=== PATIENT | female | born 1985 | race African-American/Black ===

== ENCOUNTER 2018-09-22 11:17 | Inpatient (IN) ==
[2018-09-22] MEDS ORDERED: INSULIN LISPRO 100 UNIT/ML SUBCUT STA (11:40)
[2018-09-22 11:58] LABS: Basophils % 0.2 % (0.0-0.8); Hemoglobin 13.8 GM/DL (12.0-16.0); Immature Granulocytes % 0.6 %; Immature Granulocytes Absolute 0.09 #; Lymphocytes # 1.9 10*3/uL (1.4-4.0); Lymphocytes % 11.6 % (21.3-54.2); Mean Corpuscular HGB Conc 32.9 GM/DL (32-36); Mean Corpuscular Hemoglobin 25 PG (27-34); Mean Corpuscular Volume 76.2 FL (87-102); Mean Platelet Volume 10.5 FL (9.6-12.0); Monocytes # 0.8 10*3/uL (0.11-0.8); Monocytes % 4.8 % (1.7-12.7); Neutrophils # 13.6 10*3/uL (1.4-7.4); Neutrophils % 82.8 % (38.7-73.9); Platelet Count 408 T/CUMM (130-400); Red Blood Count 5.51 MC/CUMM (3.8-5.5); Red Cell Distribution Width 13.7 % (9.3-17.3); White Blood Count 16.4 T/CUMM (4-12)
[2018-09-22 12:11] LABS: Calcium 9.7 MG/DL (8.5-10.1); Osmolality,Calculated 290.5 MOS/KG (273-304); Potassium 3.6 MMOL/L (3.5-5.1)
[2018-09-22 12:25] LABS: Apearance,Urine CLEAR (Clear); Bilirubin,Urine Negative (Negative); Blood, Urine Small mg/dL (Negative); Glucose,Urine (UA) >=500 mg/dL (Negative); Ketones,Urine 20 mg/dL (Negative); Nitrite,Urine Negative (Negative); Protein,Urine 30 MG/DL; RBC,Urine 1 /HPF (0-4); Squamous Epithelial Cell,Urine Occasional /HPF (0-10); Urine Color Straw (Yellow); Urine Specific Gravity 1.024 (1.001-1.035); Urine Urobilinogen < 2.0 EU/DL (0.2-1.0); WBC,Urine 1 /HPF (0-6)
[2018-09-22] MEDS ORDERED: SODIUM CHLORIDE 0.9% 1,000 ML IV STA (13:06)
[2018-09-22 13:41] LABS: ABG Base Excess 4.9 MMOL/L (-2.5-2.5); ABG HCO3 28.8 MMOL/L (20-26); ABG Oxygen Saturation 96.3 % (95-100); ABG PO2 82.3 MM HG (80-95); ABG TCO2 25.4 MMOL/L (23-27)
[2018-09-22] MEDS ORDERED: SODIUM CHLORIDE 0.9% 2,000 ML IV ONE (14:56)
[2018-09-22] MEDS ORDERED: GLUCAGON 1 MG VIAL IM PRN (14:59)
[2018-09-22] MEDS ORDERED: DEXTROSE 50% 25 GM/50 ML VIAL IV PRN (14:59)
[2018-09-22] MEDS ORDERED: ONDANSETRON 4 MG/2 ML VIAL IV PRN (15:01)
[2018-09-22] MEDS: cefTRIAXone 1,000 MG in SYRINGE 1 EACH IV SCH (16:10)
[2018-09-22] MEDS: INSULIN REGULAR 100 UNIT/ML SUBCUT SCH (17:53)
[2018-09-22] MEDS: PANTOPRAZOLE 40 MG VIAL IV SCH (17:53)
[2018-09-22] MEDS: SODIUM CHLORIDE 0.9% 1,000 ML IV SCH ×2 (17:53→21:52)
[2018-09-22] MEDS: ENOXAPARIN 40 MG/0.4 ML SYRINGE SUBCUT SCH (20:51)
[2018-09-22] MEDS: LISINOPRIL 10 MG TABLET PO SCH (20:52)
[2018-09-23] MEDS: INSULIN REGULAR 100 UNIT/ML SUBCUT SCH ×4 (00:27→17:24)
[2018-09-23] MEDS: SODIUM CHLORIDE 0.9% 1,000 ML IV SCH ×3 (03:31→22:37)
[2018-09-23 06:09] LABS: Basophils % 0.2 % (0.0-0.8); Eosinophils % 0.1 % (0.00-10.9); Hematocrit 36.7 VOL% (35.7-47.0); Hemoglobin 11.6 GM/DL (12.0-16.0); Immature Granulocytes % 0.5 %; Immature Granulocytes Absolute 0.06 #; Lymphocytes # 2.5 10*3/uL (1.4-4.0); Lymphocytes % 20.5 % (21.3-54.2); Mean Corpuscular HGB Conc 31.6 GM/DL (32-36); Mean Corpuscular Hemoglobin 25 PG (27-34); Mean Corpuscular Volume 78.1 FL (87-102); Mean Platelet Volume 10.4 FL (9.6-12.0); Monocytes # 0.9 10*3/uL (0.11-0.8); Monocytes % 7.5 % (1.7-12.7); Neutrophils # 8.8 10*3/uL (1.4-7.4); Neutrophils % 71.2 % (38.7-73.9); Platelet Count 343 T/CUMM (130-400); Red Cell Distribution Width 13.6 % (9.3-17.3); White Blood Count 12.3 T/CUMM (4-12)
[2018-09-23 06:39] LABS: Calcium 7.8 MG/DL (8.5-10.1); Osmolality,Calculated 279.8 MOS/KG (273-304); Potassium 3.9 MMOL/L (3.5-5.1)
[2018-09-23 06:43] LABS: Risk Ratio 4.6; VLDL CHOLESTEROL 35.2 MG/DL
[2018-09-23] MEDS: PANTOPRAZOLE 40 MG VIAL IV SCH (08:15)
[2018-09-23] MEDS: LISINOPRIL 10 MG TABLET PO SCH ×2 (08:16→21:08)
[2018-09-23] MEDS: INSULIN ASPART PROTAMINE/ASPART 70/30 100 UNIT/ML SUBCUT SCH (11:34)
[2018-09-23] MEDS: cefTRIAXone 1,000 MG in SYRINGE 1 EACH IV SCH (15:09)
[2018-09-23] MEDS ORDERED: ALUM/MAG/SIMETH/LIDO VISC 1:1 30 ML BOTTLE PO ONE (16:00)
[2018-09-23 16:03] LABS: Troponin I < 0.015 NG/ML (0.00-0.045)
[2018-09-23] MEDS ORDERED: ASPIRIN 325 MG TABLET PO ONE (16:14)
[2018-09-23] MEDS ORDERED: INSULIN ASPART PROTAMINE/ASPART 70/30 100 UNIT/ML SUBCUT SCH (16:30)
[2018-09-23] MEDS: metFORMIN 500 MG TABLET PO SCH (16:52)
[2018-09-23] MEDS ORDERED: INSULIN GLARGINE 100 UNIT/ML SUBCUT SCH (21:00)
[2018-09-23] MEDS: ENOXAPARIN 40 MG/0.4 ML SYRINGE SUBCUT SCH (21:04)
[2018-09-23 22:19] LABS: Troponin I < 0.015 NG/ML (0.00-0.045)
[2018-09-24] MEDS: INSULIN REGULAR 100 UNIT/ML SUBCUT SCH ×3 (00:33→14:59)
[2018-09-24 05:54] LABS: Basophils % 0.4 % (0.0-0.8); Eosinophils % 0.3 % (0.00-10.9); Hematocrit 33.9 VOL% (35.7-47.0); Hemoglobin 10.9 GM/DL (12.0-16.0); Immature Granulocytes % 0.1 %; Immature Granulocytes Absolute 0.01 #; Lymphocytes % 43.2 % (21.3-54.2); Mean Corpuscular HGB Conc 32.2 GM/DL (32-36); Mean Corpuscular Hemoglobin 25 PG (27-34); Mean Corpuscular Volume 77.6 FL (87-102); Mean Platelet Volume 10.1 FL (9.6-12.0); Monocytes # 0.6 10*3/uL (0.11-0.8); Monocytes % 8.6 % (1.7-12.7); Neutrophils # 3.3 10*3/uL (1.4-7.4); Neutrophils % 47.4 % (38.7-73.9); Platelet Count 323 T/CUMM (130-400); Red Blood Count 4.37 MC/CUMM (3.8-5.5); Red Cell Distribution Width 13.5 % (9.3-17.3); White Blood Count 6.9 T/CUMM (4-12)
[2018-09-24 06:09] LABS: Calcium 7.5 MG/DL (8.5-10.1); Osmolality,Calculated 276.5 MOS/KG (273-304); Potassium 3.2 MMOL/L (3.5-5.1)
[2018-09-24 06:13] LABS: Troponin I < 0.015 NG/ML (0.00-0.045)
[2018-09-24] MEDS ORDERED: POTASSIUM CHLORIDE 20 MEQ TABLET PO PRN (09:21)
[2018-09-24] MEDS ORDERED: POTASSIUM CHLORIDE 20 MEQ/15 ML UDCUP PO SCH (09:30)
[2018-09-24 10:07] LABS: Troponin I < 0.015 NG/ML (0.00-0.045)
[2018-09-24] MEDS: PANTOPRAZOLE 40 MG VIAL IV SCH (10:47)
[2018-09-24] MEDS: metFORMIN 500 MG TABLET PO SCH (10:48)
[2018-09-24] MEDS: LISINOPRIL 10 MG TABLET PO SCH (10:48)
[2018-09-24] MEDS: INSULIN ASPART PROTAMINE/ASPART 70/30 100 UNIT/ML SUBCUT SCH (10:48)
[2018-09-24] MEDS ORDERED: MORPHINE 4 MG/1 ML VIAL IV ONE (11:15)
[2018-09-24 14:44] VITALS: BP 144/95
== END 2018-09-24 14:30 | disposition home or self-care (01) | DRG 638 ==
LOC: N.ED 11:17 → N.5E 15:01
PROVIDERS: ADMIT Internal Medicine; ATTEND Internal Medicine

== ENCOUNTER 2019-09-21 09:39 | Observation (INO) ==
[2019-09-21 11:08] LABS: Basophils # 0.1 10*3/uL (0.0-0.2); Eosinophils # 0.1 10*3/uL (0.0-0.87); Hematocrit 35.5 VOL% (35.7-47.0); Hemoglobin 11.4 GM/DL (12.0-16.0); Immature Granulocytes % 0.3 %; Immature Granulocytes Absolute 0.02 #; Lymphocytes # 2.3 10*3/uL (1.4-4.0); Lymphocytes % 32.8 % (21.3-54.2); Mean Corpuscular HGB Conc 32.1 GM/DL (32-36); Mean Corpuscular Volume 78.2 FL (87-102); Mean Platelet Volume 9.9 FL (9.6-12.0); Monocytes % 8.4 % (1.7-12.7); Neutrophils % 56.5 % (38.7-73.9); Platelet Count 378 T/CUMM (130-400); Red Blood Count 4.54 MC/CUMM (3.8-5.5); Red Cell Distribution Width 13.8 % (9.3-17.3); White Blood Count 7.1 T/CUMM (4-12)
[2019-09-21 11:15] LABS: Apearance,Urine Slightly Hazy (Clear); Bacteria,Urine Many /HPF (Few); Bilirubin,Urine Negative (Negative); Blood, Urine Moderate mg/dL (Negative); Glucose,Urine (UA) >=500 mg/dL (Negative); Ketones,Urine Negative (Negative); Nitrite,Urine Negative (Negative); Protein,Urine 100 MG/DL; RBC,Urine 12 /HPF (0-4); Squamous Epithelial Cell,Urine Occasional /HPF (0-10); Urine Color Yellow (Yellow); Urine Specific Gravity 1.017 (1.001-1.035); Urine Urobilinogen < 2.0 EU/DL (0.2-1.0); WBC,Urine 13 /HPF (0-6)
[2019-09-21 11:36] LABS: Albumin 2.9 G/DL (3.4-5.0); Bilirubin,Total 0.4 MG/DL (0.2-1.0); Osmolality,Calculated 273.5 MOS/KG (273-304); Total Protein 8.1 G/DL (6.4-8.3)
[2019-09-21] MEDS ORDERED: PIPERACILLIN/TAZOBACTAM 3,375 MG in SODIUM CHLORIDE 0.9% 100 ML IV STA (11:45)
[2019-09-21] MEDS ORDERED: INSULIN LISPRO 100 UNIT/ML SUBCUT STA (12:01)
[2019-09-21] MEDS ORDERED: INSULIN LISPRO 100 UNIT/ML ONE (12:12)
[2019-09-21] MEDS ORDERED: VANCOMYCIN 1,000 MG VIAL ONE (13:56)
[2019-09-21] MEDS: VANCOMYCIN INJ 1,000 MG in SODIUM CHLORIDE 0.9% 250 ML IV SCH (14:04)
[2019-09-21] MEDS ORDERED: ONDANSETRON 4 MG/2 ML VIAL IV PRN (15:21)
[2019-09-21] MEDS ORDERED: GLUCAGON 1 MG VIAL IM PRN (15:21)
[2019-09-21] MEDS ORDERED: DEXTROSE 50% 25 GM/50 ML VIAL IV PRN (15:21)
[2019-09-21] MEDS ORDERED: MORPHINE 4 MG/1 ML VIAL IV PRN (15:21)
[2019-09-21] MEDS ORDERED: ENOXAPARIN 40 MG/0.4 ML SYRINGE SUBCUT SCH (15:30)
[2019-09-21] MEDS ORDERED: VANCOMYCIN INJ 1,000 MG in SODIUM CHLORIDE 0.9% 250 ML IV SCH (15:30)
[2019-09-21] MEDS ORDERED: INSULIN ASPART PROTAMINE/ASPART 70/30 100 UNIT/ML SUBCUT SCH (16:30)
[2019-09-21] MEDS: INSULIN REGULAR 100 UNIT/ML SUBCUT SCH ×2 (19:41→22:43)
[2019-09-21] MEDS: metFORMIN 500 MG TABLET PO SCH (19:42)
[2019-09-21] MEDS: PIPERACILLIN/TAZOBACTAM 3,375 MG in SODIUM CHLORIDE 0.9% 100 ML IV SCH (21:53)
[2019-09-21] MEDS: lisinopriL 10 MG TABLET PO SCH (21:57)
[2019-09-22] MEDS: VANCOMYCIN INJ 1,000 MG in SODIUM CHLORIDE 0.9% 250 ML IV SCH (03:03)
[2019-09-22 03:50] LABS: Basophils # 0.1 10*3/uL (0.0-0.2); Eosinophils # 0.1 10*3/uL (0.0-0.87); Eosinophils % 1.4 % (0.00-10.9); Hemoglobin 10.7 GM/DL (12.0-16.0); Immature Granulocytes % 0.2 %; Immature Granulocytes Absolute 0.02 #; Lymphocytes # 3.1 10*3/uL (1.4-4.0); Lymphocytes % 38.1 % (21.3-54.2); Mean Corpuscular HGB Conc 31.5 GM/DL (32-36); Mean Corpuscular Volume 78.9 FL (87-102); Mean Platelet Volume 10.3 FL (9.6-12.0); Monocytes % 6.5 % (1.7-12.7); Neutrophils % 52.8 % (38.7-73.9); Platelet Count 373 T/CUMM (130-400); Red Blood Count 4.31 MC/CUMM (3.8-5.5); Red Cell Distribution Width 13.8 % (9.3-17.3); White Blood Count 8.1 T/CUMM (4-12)
[2019-09-22 04:09] LABS: Alanine Aminotransferase 13 U/L (13-56); Albumin 2.6 G/DL (3.4-5.0); Alkaline Phosphatase 91 U/L (45-117); Aspartate Amino Transferase 11 U/L (0-37); Bilirubin,Total < 0.39 MG/DL (0.2-1.0); Blood Urea Nitrogen 11 MG/DL (7-18); Calcium 8.5 MG/DL (8.5-10.1); Estimated Glom Filtration Rate 123 ML/MIN; Glucose 85 MG/DL (74-106); Total Protein 7.7 G/DL (6.4-8.3)
[2019-09-22] MEDS: PIPERACILLIN/TAZOBACTAM 3,375 MG in SODIUM CHLORIDE 0.9% 100 ML IV SCH (06:02)
[2019-09-22] MEDS ORDERED: INSULIN ASPART PROTAMINE/ASPART 70/30 100 UNIT/ML SUBCUT SCH (07:30)
[2019-09-22] MEDS ORDERED: LIDOCAINE 1% 50 ML VIAL ONE (08:02)
[2019-09-22] MEDS: INSULIN REGULAR 100 UNIT/ML SUBCUT SCH ×2 (08:14→13:31)
[2019-09-22] MEDS: lisinopriL 10 MG TABLET PO SCH (08:31)
[2019-09-22] MEDS: metFORMIN 500 MG TABLET PO SCH (08:31)
[2019-09-22 10:22] VITALS: BP 112/79
== END 2019-09-22 13:47 | disposition home or self-care (01) ==
LOC: N.EDINP 09:39 → N.ED 09:39 → N.2W 15:50
PROVIDERS: ADMIT Family Medicine; ATTEND Family Medicine

== ENCOUNTER 2019-10-03 21:00 | Inpatient (IN) ==
[2019-10-03] MEDS ORDERED: PANTOPRAZOLE 40 MG VIAL IV STA (21:31)
[2019-10-03] MEDS ORDERED: ONDANSETRON 4 MG/2 ML VIAL IV STA (21:31)
[2019-10-03] MEDS ORDERED: SODIUM CHLORIDE 0.9% 1,000 ML IV STA ×2 (21:31→22:24)
[2019-10-03] MEDS ORDERED: METOCLOPRAMIDE 10 MG/2 ML VIAL IV STA (21:31)
[2019-10-03 21:54] LABS: Basophils % 0.2 % (0.0-0.8); Hemoglobin 13.3 GM/DL (12.0-16.0); Immature Granulocytes % 0.6 %; Immature Granulocytes Absolute 0.09 #; Lymphocytes # 1.9 10*3/uL (1.4-4.0); Mean Corpuscular HGB Conc 32.4 GM/DL (32-36); Mean Corpuscular Volume 77.2 FL (87-102); Mean Platelet Volume 9.8 FL (9.6-12.0); Monocytes % 6.2 % (1.7-12.7); Platelet Count 492 T/CUMM (130-400); Red Blood Count 5.31 MC/CUMM (3.8-5.5); White Blood Count 14.8 T/CUMM (4-12)
[2019-10-03 22:20] LABS: Alanine Aminotransferase 16 U/L (13-56); Albumin 3.2 G/DL (3.4-5.0); Alkaline Phosphatase 88 U/L (45-117); Amylase 25 U/L (25-115); Aspartate Amino Transferase 12 U/L (0-37); Bilirubin,Total < 0.39 MG/DL (0.2-1.0); Blood Urea Nitrogen 26 MG/DL (7-18); Calcium 9.9 MG/DL (8.5-10.1); Estimated Glom Filtration Rate 78 ML/MIN; Glucose 434 MG/DL (74-106); Osmolality,Calculated 281.9 MOS/KG (273-304); Total Protein 9.5 G/DL (6.4-8.3)
[2019-10-03 22:23] LABS: Apearance,Urine CLOUDY (Clear); Bilirubin,Urine Negative (Negative); Blood, Urine Large mg/dL (Negative); Glucose,Urine (UA) >=500 mg/dL (Negative); Ketones,Urine 20 mg/dL (Negative); Nitrite,Urine Negative (Negative); Protein,Urine 100 MG/DL; RBC,Urine 48 /HPF (0-4); Squamous Epithelial Cell,Urine Moderate /HPF (0-10); Urine Color Yellow (Yellow); Urine Specific Gravity 1.023 (1.001-1.035); Urine Urobilinogen < 2.0 EU/DL (0.2-1.0); WBC,Urine 267 /HPF (0-6)
[2019-10-03] MEDS ORDERED: LEVOFLOXACIN INJ 750 MG in PREMIX 1 EACH IV STA (23:27)
[2019-10-03] MEDS ORDERED: INSULIN REGULAR 100 UNIT/ML IV ONE (23:28)
[2019-10-04] MEDS ORDERED: LABETALOL 20 MG/4 ML SYRINGE IV STA (00:12)
[2019-10-04] MEDS ORDERED: LABETALOL 20 MG/4 ML SYRINGE IV ONE (00:13)
[2019-10-04] MEDS ORDERED: ALUMINUM/MAGNES/SIMETH MAX STR 30 ML UDCUP PO PRN (00:27)
[2019-10-04] MEDS ORDERED: hydrALAZINE 20 MG/1 ML VIAL IV PRN (00:27)
[2019-10-04] MEDS ORDERED: GLUCAGON 1 MG VIAL IM PRN (00:27)
[2019-10-04] MEDS ORDERED: ACETAMINOPHEN 325 MG TABLET PO PRN (00:27)
[2019-10-04] MEDS ORDERED: NICOTINE 21 MG/24 HR PATCH TRANSDERM PRN (00:27)
[2019-10-04] MEDS ORDERED: ONDANSETRON 4 MG/2 ML VIAL IV PRN (00:27)
[2019-10-04] MEDS ORDERED: diphenhydrAMINE CAP 25 MG CAPSULE PO PRN (00:27)
[2019-10-04] MEDS ORDERED: DEXTROSE 10% 250 ML BAG IV PRN (00:33)
[2019-10-04 02:25] LABS: Calcium 8.4 MG/DL (8.5-10.1)
[2019-10-04] MEDS: SODIUM CHLORIDE 0.9% 1,000 ML IV SCH ×2 (02:48→09:17)
[2019-10-04] MEDS: INSULIN REGULAR 100 UNIT/ML SUBCUT SCH ×4 (04:31→12:53)
[2019-10-04] MEDS ORDERED: POTASSIUM CHLORIDE 20 MEQ TABLET PO ONE (07:45)
[2019-10-04] MEDS ORDERED: INSULIN ASPART PROTAMINE/ASPART 70/30 100 UNIT/ML SUBCUT SCH ×2 (08:00→16:30)
[2019-10-04] MEDS ORDERED: cefTRIAXone 1,000 MG in SYRINGE 1 EACH IV SCH (08:00)
[2019-10-04] MEDS ORDERED: lisinopriL 10 MG TABLET PO SCH (09:00)
[2019-10-04] MEDS ORDERED: FAMOTIDINE 20 MG TABLET PO SCH (09:00)
[2019-10-04 09:04] LABS: Calcium 8.7 MG/DL (8.5-10.1)
[2019-10-04] MEDS ORDERED: PROCHLORPERAZINE 5 MG TABLET PO SCH (09:30)
[2019-10-04 11:12] VITALS: BP 153/105
[2019-10-04] MEDS ORDERED: LEVOFLOXACIN INJ 750 MG in PREMIX 1 EACH IV SCH (23:00)
== END 2019-10-04 16:03 | disposition home or self-care (01) | DRG 638 ==
LOC: N.ED 21:00 → SUATTDRO 10-04 00:27 → N.EDINP 10-04 00:27 → N.5E 10-04 01:22
PROVIDERS: ADMIT Internal Medicine; ATTEND Internal Medicine

== ENCOUNTER 2020-01-16 15:08 | Inpatient (IN) ==
[2020-01-16] MEDS ORDERED: ONDANSETRON 4 MG/2 ML VIAL IV STA (17:26)
[2020-01-16] MEDS ORDERED: SODIUM CHLORIDE 0.9% 1,000 ML IV STA ×2 (17:28→18:59)
[2020-01-16] MEDS ORDERED: DICYCLOMINE 20 MG/2 ML AMP IM ONE (17:28)
[2020-01-16 17:42] LABS: Basophils % 0.1 % (0.0-0.8); Hematocrit 41.7 VOL% (35.7-47.0); Hemoglobin 13.6 GM/DL (12.0-16.0); Immature Granulocytes % 0.4 %; Immature Granulocytes Absolute 0.06 #; Lymphocytes # 1.8 10*3/uL (1.4-4.0); Lymphocytes % 11.6 % (21.3-54.2); Mean Corpuscular HGB Conc 32.6 GM/DL (32-36); Mean Corpuscular Volume 73.7 FL (87-102); Mean Platelet Volume 9.7 FL (9.6-12.0); Monocytes % 6.8 % (1.7-12.7); Neutrophils % 81.1 % (38.7-73.9); Platelet Count 396 T/CUMM (130-400); Red Blood Count 5.66 MC/CUMM (3.8-5.5); Red Cell Distribution Width 15.7 % (9.3-17.3); White Blood Count 15.8 T/CUMM (4-12)
[2020-01-16 17:50] LABS: VBG Base Excess 8.3 MEQ/L (0-4); VBG HCO3 31.8 MEQ/L (24-28); VBG Oxygen Saturation 86.4 %; VBG PCO2 44.7 MMHG (41-51); VBG PH 7.477
[2020-01-16 18:05] LABS: Albumin 3.6 G/DL (3.4-5.0); Bilirubin,Total 0.4 MG/DL (0.2-1.0); Calcium 9.4 MG/DL (8.5-10.1); Osmolality,Calculated 275.8 MOS/KG (273-304); Total Protein 8.8 G/DL (6.4-8.3)
[2020-01-16] MEDS ORDERED: INSULIN REGULAR 100 UNIT/ML SUBCUT STA (18:18)
[2020-01-16 18:45] LABS: Apearance,Urine CLOUDY (Clear); Bilirubin,Urine Negative (Negative); Blood, Urine Moderate mg/dL (Negative); Glucose,Urine (UA) >=500 mg/dL (Negative); Ketones,Urine 5 mg/dL (Negative); Nitrite,Urine Negative (Negative); Protein,Urine >=500 MG/DL; RBC,Urine 38 /HPF (0-4); Squamous Epithelial Cell,Urine Occasional /HPF (0-10); Urine Color Yellow (Yellow); Urine Specific Gravity 1.021 (1.001-1.035); Urine Urobilinogen < 2.0 EU/DL (0.2-1.0); WBC,Urine 164 /HPF (0-6)
[2020-01-16] MEDS ORDERED: cefTRIAXone 1,000 MG in SODIUM CHLORIDE 0.9% 100 ML IV STA (19:00)
[2020-01-16] MEDS ORDERED: PROMETHAZINE INJ 12.5 MG in SODIUM CHLORIDE 0.9% 50 ML IV STA (19:29)
[2020-01-16] MEDS ORDERED: ACETAMINOPHEN 325 MG TABLET PO PRN (19:50)
[2020-01-16] MEDS ORDERED: ZALEPLON 5 MG CAPSULE PO PRN (19:50)
[2020-01-16] MEDS ORDERED: DEXTROSE 10% 250 ML BAG IV PRN (19:50)
[2020-01-16] MEDS ORDERED: GLUCAGON 1 MG VIAL IM PRN (19:50)
[2020-01-16] MEDS: ENOXAPARIN 40 MG/0.4 ML SYRINGE SUBCUT SCH (21:37)
[2020-01-16] MEDS: PROMETHAZINE 25 MG/1 ML VIAL IM PRN (23:05)
[2020-01-16] MEDS: SODIUM CHLORIDE 0.9% 1,000 ML IV SCH (23:09)
[2020-01-16] MEDS: INSULIN REGULAR 100 UNIT/ML SUBCUT SCH (23:22)
[2020-01-17] MEDS: hydrALAZINE 20 MG/1 ML VIAL IV PRN (05:48)
[2020-01-17] MEDS: SODIUM CHLORIDE 0.9% 1,000 ML IV SCH ×2 (05:50→16:55)
[2020-01-17 07:49] LABS: Basophils % 0.2 % (0.0-0.8); Hematocrit 39.3 VOL% (35.7-47.0); Hemoglobin 12.9 GM/DL (12.0-16.0); Immature Granulocytes % 0.3 %; Immature Granulocytes Absolute 0.04 #; Lymphocytes # 1.5 10*3/uL (1.4-4.0); Lymphocytes % 11.6 % (21.3-54.2); Mean Corpuscular HGB Conc 32.8 GM/DL (32-36); Mean Platelet Volume 9.5 FL (9.6-12.0); Monocytes % 5.9 % (1.7-12.7); Platelet Count 355 T/CUMM (130-400); Red Blood Count 5.31 MC/CUMM (3.8-5.5); Red Cell Distribution Width 15.7 % (9.3-17.3); White Blood Count 12.8 T/CUMM (4-12)
[2020-01-17] MEDS: INSULIN REGULAR 100 UNIT/ML SUBCUT SCH ×4 (08:01→20:47)
[2020-01-17 08:09] LABS: Bilirubin,Total 0.4 MG/DL (0.2-1.0); Calcium 8.2 MG/DL (8.5-10.1); Osmolality,Calculated 274.4 MOS/KG (273-304); Total Protein 7.9 G/DL (6.4-8.3)
[2020-01-17] MEDS: ONDANSETRON 4 MG/2 ML VIAL IV PRN ×2 (11:41→20:50)
[2020-01-17] MEDS: lisinopriL 10 MG TABLET PO SCH (16:56)
[2020-01-17] MEDS: INSULIN NPH/REGULAR 70/30 100 UNIT/ML SUBCUT SCH (16:57)
[2020-01-17] MEDS: ENOXAPARIN 40 MG/0.4 ML SYRINGE SUBCUT SCH (20:48)
[2020-01-17] MEDS: cefTRIAXone 1,000 MG in SYRINGE 1 EACH IV SCH (20:48)
[2020-01-18] MEDS: SODIUM CHLORIDE 0.9% 1,000 ML IV SCH ×4 (02:31→21:30)
[2020-01-18 05:09] LABS: Basophils % 0.2 % (0.0-0.8); Hematocrit 36.8 VOL% (35.7-47.0); Hemoglobin 11.7 GM/DL (12.0-16.0); Immature Granulocytes % 0.2 %; Immature Granulocytes Absolute 0.01 #; Lymphocytes # 1.2 10*3/uL (1.4-4.0); Lymphocytes % 25.7 % (21.3-54.2); Mean Corpuscular HGB Conc 31.8 GM/DL (32-36); Mean Corpuscular Volume 74.3 FL (87-102); Mean Platelet Volume 9.2 FL (9.6-12.0); Monocytes % 11.8 % (1.7-12.7); Neutrophils % 62.1 % (38.7-73.9); Platelet Count 272 T/CUMM (130-400); Red Blood Count 4.95 MC/CUMM (3.8-5.5); Red Cell Distribution Width 15.6 % (9.3-17.3); White Blood Count 4.6 T/CUMM (4-12)
[2020-01-18 05:28] LABS: Calcium 7.5 MG/DL (8.5-10.1); Osmolality,Calculated 266.5 MOS/KG (273-304)
[2020-01-18] MEDS ORDERED: POTASSIUM CHLORIDE RIDER 10 MEQ in PREMIX 1 EACH IV PRN (08:10)
[2020-01-18] MEDS: ONDANSETRON 4 MG/2 ML VIAL IV PRN (09:05)
[2020-01-18] MEDS: INSULIN NPH/REGULAR 70/30 100 UNIT/ML SUBCUT SCH ×2 (09:07→16:42)
[2020-01-18] MEDS: INSULIN REGULAR 100 UNIT/ML SUBCUT SCH ×4 (09:08→21:31)
[2020-01-18] MEDS: POTASSIUM CHLORIDE 20 MEQ TABLET PO PRN ×4 (09:26→16:42)
[2020-01-18] MEDS: lisinopriL 10 MG TABLET PO SCH (09:28)
[2020-01-18] MEDS: CITALOPRAM 20 MG TABLET PO SCH (09:28)
[2020-01-18] MEDS: POLYETHYLENE GLYCOL POWDER 17 GM PACK PO SCH (10:50)
[2020-01-18] MEDS: hydrALAZINE 20 MG/1 ML VIAL IV PRN (13:06)
[2020-01-18] MEDS: PROMETHAZINE 25 MG/1 ML VIAL IM PRN (16:42)
[2020-01-18] MEDS: cefTRIAXone 1,000 MG in SYRINGE 1 EACH IV SCH (21:30)
[2020-01-18] MEDS: ENOXAPARIN 40 MG/0.4 ML SYRINGE SUBCUT SCH (21:30)
[2020-01-19] MEDS: POTASSIUM CHLORIDE 20 MEQ TABLET PO PRN ×6 (00:31→18:13)
[2020-01-19 05:30] LABS: Basophils % 0.3 % (0.0-0.8); Hematocrit 36.7 VOL% (35.7-47.0); Hemoglobin 11.6 GM/DL (12.0-16.0); Immature Granulocytes % 0.3 %; Immature Granulocytes Absolute 0.01 #; Lymphocytes # 1.7 10*3/uL (1.4-4.0); Lymphocytes % 46.8 % (21.3-54.2); Mean Corpuscular HGB Conc 31.6 GM/DL (32-36); Mean Corpuscular Volume 74.4 FL (87-102); Mean Platelet Volume 9.6 FL (9.6-12.0); Monocytes % 11.3 % (1.7-12.7); Neutrophils % 41.3 % (38.7-73.9); Platelet Count 219 T/CUMM (130-400); Red Blood Count 4.93 MC/CUMM (3.8-5.5); Red Cell Distribution Width 15.3 % (9.3-17.3); White Blood Count 3.6 T/CUMM (4-12)
[2020-01-19 05:42] LABS: Calcium 7.6 MG/DL (8.5-10.1); Osmolality,Calculated 260.5 MOS/KG (273-304)
[2020-01-19] MEDS: CITALOPRAM 20 MG TABLET PO SCH (09:28)
[2020-01-19] MEDS: POLYETHYLENE GLYCOL POWDER 17 GM PACK PO SCH (09:28)
[2020-01-19] MEDS: lisinopriL 10 MG TABLET PO SCH (09:29)
[2020-01-19] MEDS: INSULIN REGULAR 100 UNIT/ML SUBCUT SCH ×4 (09:29→21:33)
[2020-01-19] MEDS: SODIUM CHLORIDE 0.9% 1,000 ML IV SCH ×2 (09:29→21:25)
[2020-01-19] MEDS: INSULIN NPH/REGULAR 70/30 100 UNIT/ML SUBCUT SCH ×2 (09:30→16:59)
[2020-01-19] MEDS ORDERED: SODIUM PHOSPHATE ENEMA 133 ML BOTTLE RECTAL PRN (10:44)
[2020-01-19] MEDS ORDERED: MAGNESIUM CITRATE 300 ML BOTTLE PO ONE (10:44)
[2020-01-19] MEDS: hydrALAZINE 20 MG/1 ML VIAL IV PRN ×2 (12:16→21:20)
[2020-01-19] MEDS: ONDANSETRON 4 MG/2 ML VIAL IV PRN ×2 (12:22)
[2020-01-19] MEDS: cefTRIAXone 1,000 MG in SYRINGE 1 EACH IV SCH (21:20)
[2020-01-19] MEDS: ENOXAPARIN 40 MG/0.4 ML SYRINGE SUBCUT SCH (21:21)
[2020-01-20 02:46] LABS: Basophils % 0.2 % (0.0-0.8); Hematocrit 33.9 VOL% (35.7-47.0); Hemoglobin 11.1 GM/DL (12.0-16.0); Immature Granulocytes % 0.2 %; Immature Granulocytes Absolute 0.01 #; Lymphocytes # 1.9 10*3/uL (1.4-4.0); Lymphocytes % 45.2 % (21.3-54.2); Mean Corpuscular HGB Conc 32.7 GM/DL (32-36); Mean Corpuscular Volume 73.1 FL (87-102); Mean Platelet Volume 9.7 FL (9.6-12.0); Monocytes % 13.2 % (1.7-12.7); Neutrophils % 41.2 % (38.7-73.9); Platelet Count 191 T/CUMM (130-400); Red Blood Count 4.64 MC/CUMM (3.8-5.5); Red Cell Distribution Width 15.6 % (9.3-17.3); White Blood Count 4.2 T/CUMM (4-12)
[2020-01-20 03:13] LABS: Calcium 7.9 MG/DL (8.5-10.1); Osmolality,Calculated 263.8 MOS/KG (273-304)
[2020-01-20] MEDS: SODIUM CHLORIDE 0.9% 1,000 ML IV SCH ×2 (05:41→07:59)
[2020-01-20] MEDS: lisinopriL 10 MG TABLET PO SCH (09:41)
[2020-01-20] MEDS: INSULIN NPH/REGULAR 70/30 100 UNIT/ML SUBCUT SCH (09:41)
[2020-01-20] MEDS: CITALOPRAM 20 MG TABLET PO SCH (09:42)
[2020-01-20] MEDS: POLYETHYLENE GLYCOL POWDER 17 GM PACK PO SCH (09:42)
[2020-01-20] MEDS: INSULIN REGULAR 100 UNIT/ML SUBCUT SCH ×2 (09:42→11:48)
[2020-01-20 11:32] VITALS: BP 108/68
== END 2020-01-20 12:18 | disposition home or self-care (01) | DRG 392 ==
LOC: N.ED 15:08 → N.EDINP 15:08 → N.TELES 22:04 → N.4E 01-19 18:33
PROVIDERS: ADMIT Internal Medicine; ATTEND Internal Medicine

== ENCOUNTER 2020-07-29 14:47 | Inpatient (IN) ==
[2020-07-29 18:32] LABS: Basophils % 0.4 % (0.0-0.8); Hematocrit 38.7 VOL% (35.7-47.0); Immature Granulocytes % 0.2 %; Immature Granulocytes Absolute 0.01 #; Lymphocytes # 1.6 10*3/uL (1.4-4.0); Lymphocytes % 32.3 % (21.3-54.2); Mean Corpuscular HGB Conc 33.6 GM/DL (32-36); Mean Corpuscular Volume 74.7 FL (87-102); Mean Platelet Volume 10.5 FL (9.6-12.0); Monocytes % 4.5 % (1.7-12.7); Neutrophils % 62.6 % (38.7-73.9); Platelet Count 189 T/CUMM (130-400); Red Blood Count 5.18 MC/CUMM (3.8-5.5); Red Cell Distribution Width 13.6 % (9.3-17.3); White Blood Count 4.9 T/CUMM (4-12)
[2020-07-29 18:49] LABS: Albumin 2.7 G/DL (3.4-5.0); Bilirubin,Total 0.4 MG/DL (0.2-1.0); Calcium 8.4 MG/DL (8.5-10.1); Ferritin 155.7 ng/ml (8-252); Osmolality,Calculated 264.2 MOS/KG (273-304); Total Protein 8.4 G/DL (6.4-8.3)
[2020-07-29 19:13] LABS: Anisocytosis 1+; Band Neutrophils 1 % (0-10); Lymphocytes 34 % (20-55); Microcytosis 1+; Platelet Estimate Normal; Segmented Neutrophils 63 % (50-85); Total Cells Counted 100
[2020-07-29 19:14] LABS: Atypical Lymphocytes Few
[2020-07-29] MEDS ORDERED: ACETAMINOPHEN 500 MG TABLET PO STA (21:17)
[2020-07-29] MEDS ORDERED: ACETAMINOPHEN 500 MG TABLET ONE (21:18)
[2020-07-29 21:59] LABS: Bilirubin,Urine Negative (Negative); Blood, Urine Large mg/dL (Negative); Glucose,Urine (UA) >=500 mg/dL (Negative); Granular Casts,Urine 2 /LPF (0-1); Hyaline Casts,Urine 12 /LPF (0-3); Ketones,Urine 20 mg/dL (Negative); Nitrite,Urine Negative (Negative); Protein,Urine >=500 MG/DL; RBC,Urine 374 /HPF (0-4); Squamous Epithelial Cell,Urine Occasional /HPF (0-10); Urine Appearance Slightly Hazy (Clear); Urine Color Yellow (Yellow); Urine Specific Gravity 1.021 (1.001-1.035); Urine Urobilinogen < 2.0 EU/DL (0.2-1.0); WBC,Urine 10 /HPF (0-6)
[2020-07-29] MEDS ORDERED: ACETAMINOPHEN 325 MG TABLET PO PRN (23:15)
[2020-07-29] MEDS ORDERED: DOCUSATE SODIUM 100 MG CAPSULE PO PRN (23:15)
[2020-07-29] MEDS ORDERED: DEXTROSE 50% 25 GM/50 ML VIAL IV PRN (23:15)
[2020-07-29] MEDS ORDERED: GLUCAGON 1 MG VIAL IM PRN (23:15)
[2020-07-29] MEDS ORDERED: ONDANSETRON 4 MG/2 ML VIAL IV PRN (23:15)
[2020-07-29] MEDS ORDERED: DEXTROSE 50% 25 GM/50 ML SYRINGE IV PRN (23:31)
[2020-07-29] MEDS ORDERED: SODIUM CHLORIDE 0.9% 1,000 ML IV SCH (23:45)
[2020-07-30] MEDS: cefTRIAXone 1,000 MG in SYRINGE 1 EACH IV SCH (01:38)
[2020-07-30] MEDS: ENOXAPARIN 40 MG/0.4 ML SYRINGE SUBCUT SCH ×2 (02:02→22:12)
[2020-07-30] MEDS: FAMOTIDINE 20 MG TABLET PO SCH ×3 (02:03→22:13)
[2020-07-30] MEDS: ASCORBIC ACID 500 MG TABLET PO SCH ×3 (02:03→22:13)
[2020-07-30] MEDS: AZITHROMYCIN INJ 500 MG in SODIUM CHLORIDE 0.9% 250 ML IV SCH (02:03)
[2020-07-30 06:03] LABS: Basophils % 0.4 % (0.0-0.8); Hematocrit 33.2 VOL% (35.7-47.0); Hemoglobin 11.2 GM/DL (12.0-16.0); Immature Granulocytes % 0.5 %; Immature Granulocytes Absolute 0.03 #; Lymphocytes # 1.6 10*3/uL (1.4-4.0); Lymphocytes % 29.4 % (21.3-54.2); Mean Corpuscular HGB Conc 33.7 GM/DL (32-36); Mean Corpuscular Volume 74.9 FL (87-102); Mean Platelet Volume 10.2 FL (9.6-12.0); Monocytes % 4.8 % (1.7-12.7); Neutrophils % 64.9 % (38.7-73.9); Platelet Count 181 T/CUMM (130-400); Red Blood Count 4.43 MC/CUMM (3.8-5.5); Red Cell Distribution Width 13.6 % (9.3-17.3); White Blood Count 5.6 T/CUMM (4-12)
[2020-07-30 06:24] LABS: Calcium 7.8 MG/DL (8.5-10.1); Osmolality,Calculated 278.4 MOS/KG (273-304)
[2020-07-30 06:40] LABS: Hypochromasia 1+; Microcytosis 1+; Platelet Estimate Adequate
[2020-07-30] MEDS: CHOLECALCIFEROL 1,000 UNIT TABLET PO SCH (08:46)
[2020-07-30] MEDS: CETIRIZINE 10 MG TABLET PO SCH (08:46)
[2020-07-30] MEDS: INSULIN REGULAR 100 UNIT/ML SUBCUT SCH ×4 (08:46→22:12)
[2020-07-30] MEDS: DEXAMETHASONE 4 MG/1 ML VIAL IV SCH (08:46)
[2020-07-30] MEDS: ZINC SULFATE 220 MG CAPSULE PO SCH (08:46)
[2020-07-31] MEDS: AZITHROMYCIN INJ 500 MG in SODIUM CHLORIDE 0.9% 250 ML IV SCH ×2 (00:10→22:51)
[2020-07-31] MEDS: cefTRIAXone 1,000 MG in SYRINGE 1 EACH IV SCH ×2 (00:11→23:19)
[2020-07-31 05:05] LABS: Basophils % 0.1 % (0.0-0.8); Hematocrit 32.1 VOL% (35.7-47.0); Hemoglobin 10.8 GM/DL (12.0-16.0); Immature Granulocytes % 0.7 %; Immature Granulocytes Absolute 0.07 #; Lymphocytes # 1.7 10*3/uL (1.4-4.0); Lymphocytes % 16.5 % (21.3-54.2); Mean Corpuscular HGB Conc 33.6 GM/DL (32-36); Mean Corpuscular Volume 74.5 FL (87-102); Mean Platelet Volume 11.1 FL (9.6-12.0); Neutrophils % 78.7 % (38.7-73.9); Platelet Count 238 T/CUMM (130-400); Red Blood Count 4.31 MC/CUMM (3.8-5.5); Red Cell Distribution Width 13.6 % (9.3-17.3); White Blood Count 10.4 T/CUMM (4-12)
[2020-07-31 05:30] LABS: Calcium 7.8 MG/DL (8.5-10.1); Osmolality,Calculated 281.8 MOS/KG (273-304)
[2020-07-31 05:32] LABS: Lymphocytes 14 % (20-55); Platelet Estimate Adequate; Segmented Neutrophils 81 % (50-85); Total Cells Counted 100
[2020-07-31 05:33] LABS: Burr Cells Slight; Hypochromasia 1+; Microcytosis 1+; Ovalocytes Slight
[2020-07-31] MEDS: INSULIN REGULAR 100 UNIT/ML SUBCUT SCH ×4 (08:23→22:49)
[2020-07-31] MEDS: ASCORBIC ACID 500 MG TABLET PO SCH ×2 (08:24→22:49)
[2020-07-31] MEDS: FAMOTIDINE 20 MG TABLET PO SCH ×2 (08:24→22:49)
[2020-07-31] MEDS: CHOLECALCIFEROL 1,000 UNIT TABLET PO SCH (08:24)
[2020-07-31] MEDS: DEXAMETHASONE 4 MG/1 ML VIAL IV SCH (08:25)
[2020-07-31] MEDS ORDERED: REMDESIVIR 200 MG in SODIUM CHLORIDE 0.9% 210 ML IV ONE (09:00)
[2020-07-31] MEDS: CETIRIZINE 10 MG TABLET PO SCH (09:38)
[2020-07-31] MEDS ORDERED: SODIUM CHLORIDE 0.9% 1,000 ML IV PRN (13:34)
[2020-07-31] MEDS: ENOXAPARIN 40 MG/0.4 ML SYRINGE SUBCUT SCH (22:50)
[2020-08-01 05:13] LABS: Basophils % 0.4 % (0.0-0.8); Eosinophils % 0.4 % (0.00-10.9); Hematocrit 32.4 VOL% (35.7-47.0); Hemoglobin 10.7 GM/DL (12.0-16.0); Immature Granulocytes % 0.8 %; Immature Granulocytes Absolute 0.06 #; Lymphocytes # 2.5 10*3/uL (1.4-4.0); Lymphocytes % 32.7 % (21.3-54.2); Mean Corpuscular Volume 74.8 FL (87-102); Mean Platelet Volume 10.8 FL (9.6-12.0); Monocytes % 4.5 % (1.7-12.7); Neutrophils % 61.2 % (38.7-73.9); Platelet Count 279 T/CUMM (130-400); Red Blood Count 4.33 MC/CUMM (3.8-5.5); Red Cell Distribution Width 13.8 % (9.3-17.3); White Blood Count 7.7 T/CUMM (4-12)
[2020-08-01 05:44] LABS: Calcium 8.1 MG/DL (8.5-10.1); Osmolality,Calculated 274.8 MOS/KG (273-304)
[2020-08-01 05:46] LABS: Hypochromasia 1+; Microcytosis 1+
[2020-08-01 05:47] LABS: Ovalocytes Slight; Platelet Estimate Adequate
[2020-08-01] MEDS: INSULIN REGULAR 100 UNIT/ML SUBCUT SCH ×5 (09:36→21:49)
[2020-08-01] MEDS: DEXAMETHASONE 4 MG/1 ML VIAL IV SCH (09:36)
[2020-08-01] MEDS: ZINC SULFATE 220 MG CAPSULE PO SCH (09:37)
[2020-08-01] MEDS: ASCORBIC ACID 500 MG TABLET PO SCH ×2 (09:37→21:38)
[2020-08-01] MEDS: CHOLECALCIFEROL 1,000 UNIT TABLET PO SCH (09:37)
[2020-08-01] MEDS: FAMOTIDINE 20 MG TABLET PO SCH ×2 (09:37→21:38)
[2020-08-01] MEDS: CETIRIZINE 10 MG TABLET PO SCH (09:37)
[2020-08-01] MEDS: REMDESIVIR 100 MG in SODIUM CHLORIDE 0.9% 100 ML IV SCH (12:50)
[2020-08-01] MEDS: ENOXAPARIN 40 MG/0.4 ML SYRINGE SUBCUT SCH (21:38)
[2020-08-02] MEDS: cefTRIAXone 1,000 MG in SYRINGE 1 EACH IV SCH ×2 (01:30→23:43)
[2020-08-02] MEDS: AZITHROMYCIN INJ 500 MG in SODIUM CHLORIDE 0.9% 250 ML IV SCH ×2 (01:33→23:44)
[2020-08-02 06:13] LABS: Basophils % 0.1 % (0.0-0.8); Hemoglobin 11.1 GM/DL (12.0-16.0); Immature Granulocytes % 1.2 %; Lymphocytes % 20.8 % (21.3-54.2); Mean Corpuscular HGB Conc 33.6 GM/DL (32-36); Mean Corpuscular Volume 74.5 FL (87-102); Mean Platelet Volume 10.8 FL (9.6-12.0); Neutrophils % 69.9 % (38.7-73.9); Platelet Count 335 T/CUMM (130-400); Red Blood Count 4.43 MC/CUMM (3.8-5.5); Red Cell Distribution Width 13.7 % (9.3-17.3); White Blood Count 7.5 T/CUMM (4-12)
[2020-08-02 06:14] LABS: Immature Granulocytes Absolute 0.09 #; Lymphocytes # 1.6 10*3/uL (1.4-4.0)
[2020-08-02 06:20] LABS: Calcium 8.3 MG/DL (8.5-10.1); Osmolality,Calculated 278.7 MOS/KG (273-304)
[2020-08-02] MEDS: DEXAMETHASONE 4 MG/1 ML VIAL IV SCH (09:25)
[2020-08-02] MEDS: INSULIN REGULAR 100 UNIT/ML SUBCUT SCH ×4 (09:25→20:54)
[2020-08-02] MEDS: FAMOTIDINE 20 MG TABLET PO SCH ×2 (09:26→20:54)
[2020-08-02] MEDS: ASCORBIC ACID 500 MG TABLET PO SCH ×2 (09:26→20:54)
[2020-08-02] MEDS: CHOLECALCIFEROL 1,000 UNIT TABLET PO SCH (09:26)
[2020-08-02] MEDS: CETIRIZINE 10 MG TABLET PO SCH (09:26)
[2020-08-02 09:31] LABS: Hypochromasia 1+; Lymphocytes 23 % (20-55); Microcytosis 1+; Segmented Neutrophils 74 % (50-85); Total Cells Counted 100
[2020-08-02 09:32] LABS: Platelet Estimate Normal; Target Cells Slight
[2020-08-02] MEDS: REMDESIVIR 100 MG in SODIUM CHLORIDE 0.9% 100 ML IV SCH (10:59)
[2020-08-02] MEDS: ENOXAPARIN 40 MG/0.4 ML SYRINGE SUBCUT SCH (20:54)
[2020-08-03 05:54] LABS: Calcium 8.3 MG/DL (8.5-10.1); Osmolality,Calculated 280.8 MOS/KG (273-304)
[2020-08-03 06:08] LABS: Basophils % 0.2 % (0.0-0.8); Eosinophils % 0.3 % (0.00-10.9); Hematocrit 31.2 VOL% (35.7-47.0); Hemoglobin 10.4 GM/DL (12.0-16.0); Immature Granulocytes % 1.2 %; Immature Granulocytes Absolute 0.14 #; Lymphocytes % 17.9 % (21.3-54.2); Mean Corpuscular HGB Conc 33.3 GM/DL (32-36); Mean Corpuscular Volume 75.2 FL (87-102); Mean Platelet Volume 10.5 FL (9.6-12.0); Monocytes % 6.6 % (1.7-12.7); Neutrophils % 73.8 % (38.7-73.9); Platelet Count 392 T/CUMM (130-400); Red Blood Count 4.15 MC/CUMM (3.8-5.5); Red Cell Distribution Width 13.8 % (9.3-17.3); White Blood Count 11.2 T/CUMM (4-12)
[2020-08-03] MEDS: ZINC SULFATE 220 MG CAPSULE PO SCH (08:09)
[2020-08-03] MEDS: CITALOPRAM 20 MG TABLET PO SCH (08:09)
[2020-08-03] MEDS: CETIRIZINE 10 MG TABLET PO SCH (08:09)
[2020-08-03] MEDS: CHOLECALCIFEROL 1,000 UNIT TABLET PO SCH (08:09)
[2020-08-03] MEDS: FAMOTIDINE 20 MG TABLET PO SCH ×2 (08:09→21:12)
[2020-08-03] MEDS: ASCORBIC ACID 500 MG TABLET PO SCH ×2 (08:09→21:12)
[2020-08-03] MEDS: DEXAMETHASONE 4 MG/1 ML VIAL IV SCH (08:09)
[2020-08-03] MEDS: INSULIN REGULAR 100 UNIT/ML SUBCUT SCH ×4 (08:53→21:10)
[2020-08-03] MEDS: REMDESIVIR 100 MG in SODIUM CHLORIDE 0.9% 100 ML IV SCH (09:56)
[2020-08-03] MEDS: INSULIN GLARGINE 100 UNIT/ML SUBCUT SCH (21:12)
[2020-08-03] MEDS: ENOXAPARIN 40 MG/0.4 ML SYRINGE SUBCUT SCH (21:12)
[2020-08-04] MEDS: cefTRIAXone 1,000 MG in SYRINGE 1 EACH IV SCH (01:26)
[2020-08-04] MEDS: AZITHROMYCIN INJ 500 MG in SODIUM CHLORIDE 0.9% 250 ML IV SCH (01:30)
[2020-08-04 06:23] LABS: Basophils % 0.2 % (0.0-0.8); Eosinophils # 0.1 10*3/uL (0.0-0.87); Eosinophils % 0.7 % (0.00-10.9); Hematocrit 32.9 VOL% (35.7-47.0); Hemoglobin 10.8 GM/DL (12.0-16.0); Immature Granulocytes % 1.7 %; Immature Granulocytes Absolute 0.18 #; Lymphocytes # 2.5 10*3/uL (1.4-4.0); Lymphocytes % 23.4 % (21.3-54.2); Mean Corpuscular HGB Conc 32.8 GM/DL (32-36); Mean Corpuscular Volume 75.6 FL (87-102); Mean Platelet Volume 10.1 FL (9.6-12.0); Monocytes % 7.3 % (1.7-12.7); Neutrophils % 66.7 % (38.7-73.9); Platelet Count 451 T/CUMM (130-400); Red Blood Count 4.35 MC/CUMM (3.8-5.5); Red Cell Distribution Width 13.6 % (9.3-17.3); White Blood Count 10.8 T/CUMM (4-12)
[2020-08-04 06:45] LABS: Calcium 8.6 MG/DL (8.5-10.1); Osmolality,Calculated 275.5 MOS/KG (273-304)
[2020-08-04] MEDS: INSULIN REGULAR 100 UNIT/ML SUBCUT SCH ×4 (10:06→21:48)
[2020-08-04] MEDS: CHOLECALCIFEROL 1,000 UNIT TABLET PO SCH (10:08)
[2020-08-04] MEDS: CITALOPRAM 20 MG TABLET PO SCH (10:08)
[2020-08-04] MEDS: DEXAMETHASONE 4 MG/1 ML VIAL IV SCH (10:08)
[2020-08-04] MEDS: CETIRIZINE 10 MG TABLET PO SCH (10:09)
[2020-08-04] MEDS: REMDESIVIR 100 MG in SODIUM CHLORIDE 0.9% 100 ML IV SCH (10:13)
[2020-08-04] MEDS: ASCORBIC ACID 500 MG TABLET PO SCH ×2 (11:59→21:47)
[2020-08-04] MEDS: FAMOTIDINE 20 MG TABLET PO SCH ×2 (12:05→21:47)
[2020-08-04] MEDS: INSULIN GLARGINE 100 UNIT/ML SUBCUT SCH (21:47)
[2020-08-04] MEDS: ENOXAPARIN 40 MG/0.4 ML SYRINGE SUBCUT SCH (21:47)
[2020-08-05 05:21] LABS: Basophils % 0.3 % (0.0-0.8); Eosinophils # 0.1 10*3/uL (0.0-0.87); Eosinophils % 1.2 % (0.00-10.9); Hematocrit 33.6 VOL% (35.7-47.0); Immature Granulocytes % 2.5 %; Immature Granulocytes Absolute 0.26 #; Lymphocytes # 2.5 10*3/uL (1.4-4.0); Lymphocytes % 23.9 % (21.3-54.2); Mean Corpuscular HGB Conc 32.7 GM/DL (32-36); Mean Corpuscular Volume 76.4 FL (87-102); Mean Platelet Volume 9.8 FL (9.6-12.0); Monocytes % 8.5 % (1.7-12.7); Neutrophils % 63.6 % (38.7-73.9); Platelet Count 503 T/CUMM (130-400); Red Cell Distribution Width 13.8 % (9.3-17.3); White Blood Count 10.4 T/CUMM (4-12)
[2020-08-05 05:46] LABS: Osmolality,Calculated 276.7 MOS/KG (273-304)
[2020-08-05] MEDS: CHOLECALCIFEROL 1,000 UNIT TABLET PO SCH (08:12)
[2020-08-05] MEDS: CITALOPRAM 20 MG TABLET PO SCH (08:13)
[2020-08-05] MEDS: ASCORBIC ACID 500 MG TABLET PO SCH (08:13)
[2020-08-05] MEDS: FAMOTIDINE 20 MG TABLET PO SCH (08:13)
[2020-08-05] MEDS: CETIRIZINE 10 MG TABLET PO SCH (08:13)
[2020-08-05] MEDS ORDERED: DEXAMETHASONE 4 MG TABLET PO SCH (09:00)
[2020-08-05] MEDS: INSULIN REGULAR 100 UNIT/ML SUBCUT SCH ×2 (10:19→12:50)
[2020-08-05 11:24] VITALS: BP 107/68
== END 2020-08-05 16:33 | disposition home or self-care (01) | DRG 177 ==
LOC: N.ED 14:47 → SUATTDRO 23:58 → N.EDINP 23:58 → N.2E 07-30 02:49
PROVIDERS: ADMIT Internal Medicine; ATTEND Internal Medicine

== ENCOUNTER 2022-01-30 19:41 | Inpatient (IN) ==
[2022-01-30 20:36] LABS: Basophils % 0.1 % (0.0-0.8); Hematocrit 37.4 VOL% (35.7-47.0); Hemoglobin 12.2 GM/DL (12.0-16.0); Immature Granulocytes % 0.6 %; Immature Granulocytes Absolute 0.08 #; Lymphocytes # 2.3 10*3/uL (1.4-4.0); Lymphocytes % 17.2 % (21.3-54.2); Mean Corpuscular HGB Conc 32.6 GM/DL (32-36); Mean Corpuscular Volume 70.6 FL (87-102); Mean Platelet Volume 9.3 FL (9.6-12.0); Monocytes # 0.9 10*3/uL (0.11-0.8); Monocytes % 6.8 % (1.7-12.7); Neutrophils % 75.3 % (38.7-73.9); Platelet Count 384 T/CUMM (130-400); Red Cell Distribution Width 16.7 % (9.3-17.3); White Blood Count 13.5 T/CUMM (4-12)
[2022-01-30 21:39] LABS: Albumin 3.2 G/DL (3.4-5.0); Bilirubin,Total 0.4 MG/DL (0.20-1.00); Calcium 8.3 MG/DL (8.5-10.1); Osmolality,Calculated 288.7 MOS/KG (273-304); Potassium 3.3 MMOL/L (3.5-5.1); Total Protein 8.1 G/DL (6.4-8.2)
[2022-01-30] MEDS ORDERED: MORPHINE 2 MG/1 ML SYRINGE IV STA (23:34)
[2022-01-30] MEDS ORDERED: ONDANSETRON 4 MG/2 ML VIAL IV STA (23:34)
[2022-01-30] MEDS ORDERED: SODIUM CHLORIDE 0.9% 1,000 ML IV STA (23:34)
[2022-01-30] MEDS ORDERED: PANTOPRAZOLE 40 MG VIAL IV STA (23:36)
[2022-01-30] MEDS ORDERED: hydrALAZINE 20 MG/1 ML VIAL IV STA (23:36)
[2022-01-31] MEDS ORDERED: GLUCAGON 1 MG VIAL IM PRN (01:43)
[2022-01-31] MEDS ORDERED: hydrALAZINE 20 MG/1 ML VIAL IV PRN (01:44)
[2022-01-31] MEDS ORDERED: DEXTROSE 10% 250 ML BAG IV PRN (01:57)
[2022-01-31] MEDS ORDERED: SODIUM CHLORIDE 0.9% 1,000 ML IV SCH (02:00)
[2022-01-31] MEDS ORDERED: MAGNESIUM SULF RIDER 4 GM/100 ML PREMIX IV PRN (02:23)
[2022-01-31] MEDS ORDERED: MAGNESIUM SULF RIDER 2 GM/50 ML PREMIX IV PRN (02:23)
[2022-01-31] MEDS ORDERED: POTASSIUM CHLORIDE RIDER 10 MEQ/100 ML PREMIX IV PRN (02:23)
[2022-01-31 06:07] LABS: Basophils % 0.2 % (0.0-0.8); Eosinophils % 0.1 % (0.00-10.9); Hematocrit 39.2 VOL% (35.7-47.0); Hemoglobin 12.9 GM/DL (12.0-16.0); Immature Granulocytes % 0.4 %; Immature Granulocytes Absolute 0.05 #; Lymphocytes # 2.5 10*3/uL (1.4-4.0); Lymphocytes % 19.6 % (21.3-54.2); Mean Corpuscular HGB Conc 32.9 GM/DL (32-36); Mean Corpuscular Volume 69.5 FL (87-102); Mean Platelet Volume 9.6 FL (9.6-12.0); Monocytes # 1.1 10*3/uL (0.11-0.8); Monocytes % 8.2 % (1.7-12.7); Neutrophils % 71.5 % (38.7-73.9); Platelet Count 390 T/CUMM (130-400); Red Blood Count 5.64 MC/CUMM (3.8-5.5); Red Cell Distribution Width 16.7 % (9.3-17.3); White Blood Count 12.8 T/CUMM (4-12)
[2022-01-31 06:34] LABS: Calcium 8.1 MG/DL (8.5-10.1); Osmolality,Calculated 289.7 MOS/KG (273-304); Thyroid Stimulating Hormone 0.699 uIU/ml (0.358-3.74)
[2022-01-31] MEDS ORDERED: SODIUM CHLORIDE 0.9% 500 ML IV ONE (08:16)
[2022-01-31] MEDS ORDERED: hydrALAZINE 20 MG/1 ML VIAL IV ONE (08:17)
[2022-01-31] MEDS: HEPARIN 5,000 UNIT/1 ML VIAL SUBCUT SCH ×2 (08:51→21:46)
[2022-01-31] MEDS: INSULIN REGULAR 100 UNIT/ML SUBCUT SCH ×4 (08:51→23:16)
[2022-01-31] MEDS: POLYETHYLENE GLYCOL POWDER 17 GM PACK PO SCH ×2 (08:53→21:46)
[2022-01-31] MEDS: SODIUM CHLOR 0.9% KCL 40 MEQ 40 MEQ/1,000 ML BAG IV SCH ×2 (08:53→19:58)
[2022-01-31] MEDS: amLODIPine 5 MG TABLET PO SCH (08:53)
[2022-01-31] MEDS: PANTOPRAZOLE 40 MG VIAL IV SCH ×2 (08:53→21:38)
[2022-01-31] MEDS: ONDANSETRON 4 MG/2 ML VIAL IV PRN ×3 (08:57→19:55)
[2022-01-31] MEDS: MORPHINE 2 MG/1 ML SYRINGE IV PRN ×2 (17:49→21:38)
[2022-02-01] MEDS: MORPHINE 2 MG/1 ML SYRINGE IV PRN ×2 (03:26→12:33)
[2022-02-01 03:30] LABS: Bilirubin,Urine Negative (Negative); Glucose,Urine (UA) 100 mg/dL (Negative); Ketones,Urine Trace mg/dL (Negative); Mucus,Urine Occasional /LPF (Occasional); Nitrite,Urine Negative (Negative); Protein,Urine 100 mg/dL (Negative); RBC,Urine 53 /HPF (0-4); Squamous Epithelial Cell,Urine Few /HPF (0-10); Urine Appearance Slightly Hazy (Clear); Urine Color Yellow (Yellow); Urine pH 5.5 (4.5-8.0)
[2022-02-01 03:31] LABS: Blood, Urine Large mg/dL (Negative); Urine Urobilinogen 0.2 eU/dL (<2.0)
[2022-02-01] MEDS: SODIUM CHLOR 0.9% KCL 40 MEQ 40 MEQ/1,000 ML BAG IV SCH (04:27)
[2022-02-01 06:14] LABS: Basophils % 0.5 % (0.0-0.8); Eosinophils % 0.3 % (0.00-10.9); Hemoglobin 10.8 GM/DL (12.0-16.0); Immature Granulocytes % 0.3 %; Immature Granulocytes Absolute 0.02 #; Lymphocytes # 2.6 10*3/uL (1.4-4.0); Lymphocytes % 40.8 % (21.3-54.2); Mean Corpuscular HGB Conc 32.6 GM/DL (32-36); Mean Corpuscular Volume 71.3 FL (87-102); Mean Platelet Volume 9.7 FL (9.6-12.0); Monocytes # 0.6 10*3/uL (0.11-0.8); Monocytes % 9.2 % (1.7-12.7); Neutrophils % 48.9 % (38.7-73.9); Platelet Count 329 T/CUMM (130-400); Red Blood Count 4.64 MC/CUMM (3.8-5.5); Red Cell Distribution Width 16.9 % (9.3-17.3)
[2022-02-01 06:24] LABS: White Blood Count 6.4 T/CUMM (4-12)
[2022-02-01 06:25] LABS: Hematocrit 33.1 VOL% (35.7-47.0)
[2022-02-01 06:34] LABS: Calcium 7.6 MG/DL (8.5-10.1); Osmolality,Calculated 293.8 MOS/KG (273-304); Potassium 3.8 MMOL/L (3.5-5.1)
[2022-02-01] MEDS ORDERED: SODIUM CHLORIDE 0.9% 250 ML IV ONE (07:53)
[2022-02-01] MEDS ORDERED: LACTATED RINGERS 1,000 ML IV ONE (08:06)
[2022-02-01 08:42] LABS: % Iron Saturation 16.9 % (18-50)
[2022-02-01] MEDS: INSULIN REGULAR 100 UNIT/ML SUBCUT SCH ×4 (08:45→20:06)
[2022-02-01] MEDS: PANTOPRAZOLE 40 MG VIAL IV SCH ×2 (08:45→21:15)
[2022-02-01] MEDS: POLYETHYLENE GLYCOL POWDER 17 GM PACK PO SCH ×2 (08:45→21:15)
[2022-02-01] MEDS: HEPARIN 5,000 UNIT/1 ML VIAL SUBCUT SCH ×2 (08:45→21:18)
[2022-02-01] MEDS: amLODIPine 5 MG TABLET PO SCH (08:45)
[2022-02-01] MEDS: cefTRIAXone 2,000 MG in SODIUM CHLORIDE 0.9% 100 ML IV SCH (08:47)
[2022-02-01] MEDS: SODIUM CHLORIDE 0.9% 1,000 ML IV SCH ×2 (11:02→18:39)
[2022-02-01] MEDS: ONDANSETRON 4 MG/2 ML VIAL IV PRN (12:32)
[2022-02-01] MEDS: FERROUS SULFATE 325 MG TABLET PO SCH (21:15)
[2022-02-02] MEDS: SODIUM CHLORIDE 0.9% 1,000 ML IV SCH ×3 (01:17→17:33)
[2022-02-02] MEDS: ONDANSETRON 4 MG/2 ML VIAL IV PRN (01:17)
[2022-02-02] MEDS: MORPHINE 2 MG/1 ML SYRINGE IV PRN (01:22)
[2022-02-02 05:01] LABS: Basophils # 0.1 10*3/uL (0.0-0.2); Eosinophils # 0.1 10*3/uL (0.0-0.87); Eosinophils % 1.6 % (0.00-10.9); Hematocrit 33.8 VOL% (35.7-47.0); Hemoglobin 10.8 GM/DL (12.0-16.0); Immature Granulocytes % 0.2 %; Immature Granulocytes Absolute 0.01 #; Lymphocytes # 2.5 10*3/uL (1.4-4.0); Lymphocytes % 48.1 % (21.3-54.2); Mean Corpuscular Volume 71.8 FL (87-102); Mean Platelet Volume 9.7 FL (9.6-12.0); Monocytes # 0.5 10*3/uL (0.11-0.8); Monocytes % 9.6 % (1.7-12.7); Neutrophils % 39.5 % (38.7-73.9); Platelet Count 316 T/CUMM (130-400); Red Blood Count 4.71 MC/CUMM (3.8-5.5); White Blood Count 5.1 T/CUMM (4-12)
[2022-02-02 05:15] LABS: Osmolality,Calculated 282.8 MOS/KG (273-304); Potassium 3.2 MMOL/L (3.5-5.1)
[2022-02-02] MEDS: INSULIN REGULAR 100 UNIT/ML SUBCUT SCH ×4 (09:29→23:10)
[2022-02-02] MEDS: PANTOPRAZOLE 40 MG VIAL IV SCH ×2 (09:31→21:06)
[2022-02-02] MEDS: amLODIPine 5 MG TABLET PO SCH (09:32)
[2022-02-02] MEDS: HEPARIN 5,000 UNIT/1 ML VIAL SUBCUT SCH ×2 (09:32→22:01)
[2022-02-02] MEDS: CHOLECALCIFEROL 1,000 UNIT TABLET PO SCH (09:32)
[2022-02-02] MEDS: FERROUS SULFATE 325 MG TABLET PO SCH ×2 (09:33→21:06)
[2022-02-02] MEDS: POLYETHYLENE GLYCOL POWDER 17 GM PACK PO SCH ×2 (09:33→22:00)
[2022-02-02] MEDS: cefTRIAXone 2,000 MG in SODIUM CHLORIDE 0.9% 100 ML IV SCH (10:04)
[2022-02-02] MEDS: POTASSIUM CHLORIDE 20 MEQ TABLET PO PRN ×2 (17:34→21:06)
[2022-02-03] MEDS: SODIUM CHLORIDE 0.9% 1,000 ML IV SCH ×2 (00:27→07:15)
[2022-02-03] MEDS: POTASSIUM CHLORIDE 20 MEQ TABLET PO PRN ×2 (01:50→03:56)
[2022-02-03 05:03] LABS: Basophils # 0.1 10*3/uL (0.0-0.2); Basophils % 0.8 % (0.0-0.8); Eosinophils # 0.1 10*3/uL (0.0-0.87); Hematocrit 33.4 VOL% (35.7-47.0); Hemoglobin 10.8 GM/DL (12.0-16.0); Immature Granulocytes % 0.2 %; Immature Granulocytes Absolute 0.01 #; Lymphocytes # 3.5 10*3/uL (1.4-4.0); Lymphocytes % 57.5 % (21.3-54.2); Mean Corpuscular HGB Conc 32.3 GM/DL (32-36); Mean Corpuscular Volume 71.8 FL (87-102); Mean Platelet Volume 10.1 FL (9.6-12.0); Monocytes # 0.6 10*3/uL (0.11-0.8); Monocytes % 9.1 % (1.7-12.7); Neutrophils % 30.4 % (38.7-73.9); Platelet Count 352 T/CUMM (130-400); Red Blood Count 4.65 MC/CUMM (3.8-5.5); Red Cell Distribution Width 17.1 % (9.3-17.3); White Blood Count 6.1 T/CUMM (4-12)
[2022-02-03 05:30] LABS: Calcium 7.9 MG/DL (8.5-10.1); Osmolality,Calculated 278.7 MOS/KG (273-304); Potassium 3.2 MMOL/L (3.5-5.1)
[2022-02-03 05:51] LABS: Atypical Lymphocytes Few; Eosinophils 1 % (0-10); Hypochromia 1+; Lymphocytes 55 % (20-55); Microcytosis 1+; Total Cells Counted 100
[2022-02-03 07:38] VITALS: BP 133/94
[2022-02-03] MEDS ORDERED: FERROUS SULFATE 325 MG TABLET PO SCH (08:00)
[2022-02-03] MEDS ORDERED: POTASSIUM CHLORIDE 20 MEQ TABLET PO ONE (08:00)
[2022-02-03] MEDS ORDERED: MAGNESIUM SULF RIDER 2 GM/50 ML PREMIX IV ONE (08:00)
[2022-02-03] MEDS: cefTRIAXone 2,000 MG in SODIUM CHLORIDE 0.9% 100 ML IV SCH (08:15)
[2022-02-03] MEDS: PANTOPRAZOLE 40 MG VIAL IV SCH (08:16)
[2022-02-03] MEDS: INSULIN REGULAR 100 UNIT/ML SUBCUT SCH (08:16)
[2022-02-03] MEDS: amLODIPine 5 MG TABLET PO SCH (08:17)
[2022-02-03] MEDS: CHOLECALCIFEROL 1,000 UNIT TABLET PO SCH (08:17)
[2022-02-03] MEDS: POLYETHYLENE GLYCOL POWDER 17 GM PACK PO SCH (08:17)
[2022-02-03] MEDS: HEPARIN 5,000 UNIT/1 ML VIAL SUBCUT SCH (08:23)
== END 2022-02-03 11:32 | disposition home or self-care (01) | DRG 684 ==
LOC: N.ED 19:41 → N.EDINP 19:41 → N.3E 01-31 05:36 → SUATTDRO 01-31 08:18
PROVIDERS: ADMIT Family Medicine; ATTEND Emergency Medicine

== ENCOUNTER 2022-06-29 08:50 | Observation (INO) ==
[2022-06-29 09:38] LABS: Bilirubin,Urine Negative (Negative); Blood, Urine Large mg/dL (Negative); Glucose,Urine (UA) 500 mg/dL (Negative); Hyaline Casts,Urine 1 /LPF (0-3); Ketones,Urine 80 mg/dL (Negative); Nitrite,Urine Negative (Negative); Protein,Urine >=300 mg/dL (Negative); RBC,Urine 244 /HPF (0-4); Squamous Epithelial Cell,Urine Occasional /HPF (0-10); Urine Appearance Slightly Hazy (Clear); Urine Color Yellow (Yellow); Urine Specific Gravity 1.025 (1.001-1.035); Urine Urobilinogen 0.2 eU/dL (<2.0); Urine pH 5.5 (4.5-8.0)
[2022-06-29] MEDS ORDERED: PROMETHAZINE INJ 25 MG in SODIUM CHLORIDE 0.9% 50 ML IV STA (10:20)
[2022-06-29] MEDS ORDERED: SODIUM CHLORIDE 0.9% 1,000 ML IV STA ×2 (10:21→13:20)
[2022-06-29] MEDS ORDERED: PROMETHAZINE 25 MG/1 ML VIAL ONE ×2 (10:22→14:36)
[2022-06-29 10:29] LABS: Basophils % 0.3 % (0.0-0.8); Hematocrit 39.7 VOL% (35.7-47.0); Immature Granulocytes % 0.5 %; Immature Granulocytes Absolute 0.05 #; Lymphocytes # 1.8 10*3/uL (1.4-4.0); Mean Corpuscular HGB Conc 32.7 GM/DL (32-36); Mean Corpuscular Volume 76.2 FL (87-102); Mean Platelet Volume 10.1 FL (9.6-12.0); Monocytes # 0.3 10*3/uL (0.11-0.8); Monocytes % 2.9 % (1.7-12.7); Neutrophils % 80.3 % (38.7-73.9); Platelet Count 391 T/CUMM (130-400); Red Blood Count 5.21 MC/CUMM (3.8-5.5); Red Cell Distribution Width 14.5 % (9.3-17.3); White Blood Count 10.9 T/CUMM (4-12)
[2022-06-29 10:50] LABS: Albumin 3.5 G/DL (3.4-5.0); Bilirubin,Total 0.4 MG/DL (0.20-1.00); Calcium 9.5 MG/DL (8.5-10.1); Osmolality,Calculated 294.7 MOS/KG (273-304); Potassium 3.6 MMOL/L (3.5-5.1); Total Protein 8.8 G/DL (6.4-8.2)
[2022-06-29 11:04] LABS: Barbiturates Screen,Urine Negative (Negative); Benzodiazepines Screen,Urine Negative (Negative); Cannabinoid Screen,Urine Negative (Negative); Opiate Screen,Urine Negative (Negative); Phencyclidine Screen,Urine Negative (Negative)
[2022-06-29] MEDS ORDERED: hydrALAZINE 20 MG/1 ML VIAL IV STA (11:14)
[2022-06-29] MEDS ORDERED: INSULIN REGULAR 100 UNIT/ML IV STA (13:19)
[2022-06-29] MEDS ORDERED: cefTRIAXone 1,000 MG in SODIUM CHLORIDE 0.9% 100 ML IV STA (13:20)
[2022-06-29] MEDS ORDERED: PANTOPRAZOLE 40 MG VIAL IV STA (14:42)
[2022-06-29 15:56] LABS: Calcium 8.7 MG/DL (8.5-10.1); Osmolality,Calculated 295.4 MOS/KG (273-304); Potassium 3.2 MMOL/L (3.5-5.1)
[2022-06-29] MEDS ORDERED: POTASSIUM CHLORIDE 20 MEQ TABLET PO STA (16:00)
[2022-06-29] MEDS ORDERED: PROMETHAZINE 25 MG/1 ML VIAL IM PRN (16:02)
[2022-06-29] MEDS ORDERED: hydrALAZINE 20 MG/1 ML VIAL IV PRN (16:02)
[2022-06-29] MEDS ORDERED: DEXTROSE 50% 25 GM/50 ML VIAL IV PRN (16:05)
[2022-06-29] MEDS ORDERED: DEXTROSE 10% 250 ML BAG IV PRN (16:05)
[2022-06-29] MEDS ORDERED: GLUCAGON 1 MG VIAL IM PRN (16:05)
[2022-06-29] MEDS ORDERED: amLODIPine 5 MG TABLET PO ONE (16:29)
[2022-06-29 16:51] LABS: Thyroid Stimulating Hormone 0.576 uIU/ml (0.358-3.74)
[2022-06-29] MEDS: POTASSIUM CHLORIDE INJ 40 MEQ in LACTATED RINGERS 1,000 ML IV SCH (17:43)
[2022-06-29] MEDS ORDERED: INSULIN LISPRO 100 UNIT/ML SUBCUT SCH (18:00)
[2022-06-29] MEDS: INSULIN LISPRO 100 UNIT/ML SUBCUT SCH ×2 (18:13→21:54)
[2022-06-29] MEDS: ENOXAPARIN 40 MG/0.4 ML SYRINGE SUBCUT SCH (18:21)
[2022-06-29] MEDS ORDERED: POTASSIUM CHLORIDE 20 MEQ TABLET PO ONE (19:00)
[2022-06-29] MEDS ORDERED: INSULIN NPH/REG 70/30 100 UNIT/ML SUBCUT SCH (21:00)
[2022-06-30] MEDS: INSULIN LISPRO 100 UNIT/ML SUBCUT SCH ×4 (05:29→21:53)
[2022-06-30 05:32] LABS: Basophils % 0.2 % (0.0-0.8); Hematocrit 37.9 VOL% (35.7-47.0); Hemoglobin 12.4 GM/DL (12.0-16.0); Immature Granulocytes % 0.5 %; Immature Granulocytes Absolute 0.09 #; Lymphocytes # 2.1 10*3/uL (1.4-4.0); Lymphocytes % 11.5 % (21.3-54.2); Mean Corpuscular HGB Conc 32.7 GM/DL (32-36); Mean Corpuscular Volume 76.4 FL (87-102); Mean Platelet Volume 10.3 FL (9.6-12.0); Monocytes % 5.7 % (1.7-12.7); Neutrophils % 82.1 % (38.7-73.9); Platelet Count 393 T/CUMM (130-400); Red Blood Count 4.96 MC/CUMM (3.8-5.5); Red Cell Distribution Width 14.6 % (9.3-17.3); White Blood Count 17.8 T/CUMM (4-12)
[2022-06-30 05:53] LABS: Calcium 9.2 MG/DL (8.5-10.1); Osmolality,Calculated 289.3 MOS/KG (273-304); Potassium 3.8 MMOL/L (3.5-5.1)
[2022-06-30 08:25] LABS: Basophils % 0.2 % (0.0-0.8); Hematocrit 39.8 VOL% (35.7-47.0); Hemoglobin 12.6 GM/DL (12.0-16.0); Immature Granulocytes % 0.8 %; Immature Granulocytes Absolute 0.14 #; Lymphocytes % 11.6 % (21.3-54.2); Mean Corpuscular HGB Conc 31.7 GM/DL (32-36); Mean Corpuscular Volume 80.1 FL (87-102); Mean Platelet Volume 10.8 FL (9.6-12.0); Neutrophils % 81.4 % (38.7-73.9); Platelet Count 361 T/CUMM (130-400); Red Blood Count 4.97 MC/CUMM (3.8-5.5); White Blood Count 17.1 T/CUMM (4-12)
[2022-06-30] MEDS: INSULIN NPH/REG 70/30 100 UNIT/ML SUBCUT SCH ×2 (09:00→17:20)
[2022-06-30] MEDS ORDERED: POTASSIUM CHLORIDE 20 MEQ TABLET PO SCH (09:00)
[2022-06-30] MEDS: amLODIPine 10 MG TABLET PO SCH (09:00)
[2022-06-30] MEDS: ONDANSETRON 4 MG/2 ML VIAL IV PRN ×3 (09:05→22:18)
[2022-06-30] MEDS ORDERED: SIMETHICONE CHEW 125 MG TABLET PO PRN (11:16)
[2022-06-30] MEDS: LACTATED RINGERS 1,000 ML IV SCH ×2 (14:25→22:15)
[2022-06-30] MEDS: ENOXAPARIN 40 MG/0.4 ML SYRINGE SUBCUT SCH (17:20)
[2022-07-01] MEDS: ACETAMINOPHEN 325 MG TABLET PO PRN ×2 (01:54→22:31)
[2022-07-01] MEDS: ONDANSETRON 4 MG/2 ML VIAL IV PRN ×2 (01:55→22:28)
[2022-07-01 05:21] LABS: Basophils % 0.2 % (0.0-0.8); Eosinophils % 0.2 % (0.00-10.9); Hematocrit 37.4 VOL% (35.7-47.0); Hemoglobin 12.2 GM/DL (12.0-16.0); Immature Granulocytes % 0.5 %; Immature Granulocytes Absolute 0.06 #; Lymphocytes # 2.9 10*3/uL (1.4-4.0); Lymphocytes % 21.7 % (21.3-54.2); Mean Corpuscular HGB Conc 32.6 GM/DL (32-36); Mean Corpuscular Volume 76.5 FL (87-102); Mean Platelet Volume 10.2 FL (9.6-12.0); Monocytes # 0.8 10*3/uL (0.11-0.8); Monocytes % 6.4 % (1.7-12.7); Platelet Count 365 T/CUMM (130-400); Red Blood Count 4.89 MC/CUMM (3.8-5.5); Red Cell Distribution Width 14.6 % (9.3-17.3); White Blood Count 13.2 T/CUMM (4-12)
[2022-07-01 06:00] LABS: Calcium 8.5 MG/DL (8.5-10.1); Potassium 3.1 MMOL/L (3.5-5.1)
[2022-07-01] MEDS: LACTATED RINGERS 1,000 ML IV SCH (06:16)
[2022-07-01] MEDS ORDERED: POTASSIUM CHLORIDE 20 MEQ TABLET PO ONE ×2 (07:45→11:00)
[2022-07-01] MEDS: INSULIN LISPRO 100 UNIT/ML SUBCUT SCH ×4 (08:22→22:13)
[2022-07-01] MEDS: INSULIN NPH/REG 70/30 100 UNIT/ML SUBCUT SCH ×2 (08:29→16:35)
[2022-07-01] MEDS: amLODIPine 10 MG TABLET PO SCH (08:29)
[2022-07-01] MEDS ORDERED: LOSARTAN 25 MG TABLET PO ONE (12:15)
[2022-07-01] MEDS: POTASSIUM CHLORIDE INJ 40 MEQ in LACTATED RINGERS 1,000 ML IV SCH ×3 (12:19→16:34)
[2022-07-01] MEDS: METOCLOPRAMIDE 10 MG/2 ML VIAL IV SCH ×2 (14:36→17:12)
[2022-07-02] MEDS: METOCLOPRAMIDE 10 MG/2 ML VIAL IV SCH ×4 (00:22→18:15)
[2022-07-02] MEDS: POTASSIUM CHLORIDE INJ 40 MEQ in LACTATED RINGERS 1,000 ML IV SCH ×3 (02:31→17:47)
[2022-07-02 06:06] LABS: Basophils % 0.4 % (0.0-0.8); Eosinophils # 0.1 10*3/uL (0.0-0.87); Hematocrit 37.9 VOL% (35.7-47.0); Hemoglobin 12.4 GM/DL (12.0-16.0); Immature Granulocytes % 0.4 %; Immature Granulocytes Absolute 0.03 #; Lymphocytes # 3.7 10*3/uL (1.4-4.0); Lymphocytes % 45.9 % (21.3-54.2); Mean Corpuscular HGB Conc 32.7 GM/DL (32-36); Mean Corpuscular Volume 76.7 FL (87-102); Mean Platelet Volume 10.1 FL (9.6-12.0); Monocytes # 0.7 10*3/uL (0.11-0.8); Monocytes % 8.7 % (1.7-12.7); Neutrophils % 43.6 % (38.7-73.9); Platelet Count 350 T/CUMM (130-400); Red Blood Count 4.94 MC/CUMM (3.8-5.5); Red Cell Distribution Width 14.2 % (9.3-17.3); White Blood Count 8.1 T/CUMM (4-12)
[2022-07-02 06:25] LABS: Calcium 8.1 MG/DL (8.5-10.1)
[2022-07-02] MEDS: INSULIN LISPRO 100 UNIT/ML SUBCUT SCH ×4 (07:52→20:54)
[2022-07-02] MEDS ORDERED: LACTATED RINGERS 1,000 ML IV SCH (08:00)
[2022-07-02] MEDS: INSULIN NPH/REG 70/30 100 UNIT/ML SUBCUT SCH ×2 (08:56→17:14)
[2022-07-02] MEDS ORDERED: LOSARTAN 50 MG TABLET PO SCH (09:00)
[2022-07-02] MEDS ORDERED: LIDOCAINE 2% 5 ML VIAL ONE (09:45)
[2022-07-02] MEDS ORDERED: propofoL 200 MG/20 ML VIAL IV ONE (09:45)
[2022-07-02] MEDS: ONDANSETRON 4 MG/2 ML VIAL IV PRN ×2 (10:36→17:15)
[2022-07-02] MEDS: amLODIPine 10 MG TABLET PO SCH (12:49)
[2022-07-02] MEDS: FLUCONAZOLE 100 MG TABLET PO SCH (12:49)
[2022-07-02] MEDS: PANTOPRAZOLE 40 MG TABLET PO SCH ×2 (12:49→20:54)
[2022-07-03] MEDS: METOCLOPRAMIDE 10 MG/2 ML VIAL IV SCH ×2 (00:39→06:03)
[2022-07-03] MEDS: POTASSIUM CHLORIDE INJ 40 MEQ in LACTATED RINGERS 1,000 ML IV SCH (03:48)
[2022-07-03 08:10] LABS: Basophils # 0.1 10*3/uL (0.0-0.2); Basophils % 0.7 % (0.0-0.8); Eosinophils # 0.1 10*3/uL (0.0-0.87); Hematocrit 36.6 VOL% (35.7-47.0); Hemoglobin 11.9 GM/DL (12.0-16.0); Immature Granulocytes % 0.1 %; Immature Granulocytes Absolute 0.01 #; Lymphocytes # 3.6 10*3/uL (1.4-4.0); Lymphocytes % 52.1 % (21.3-54.2); Mean Corpuscular HGB Conc 32.5 GM/DL (32-36); Mean Corpuscular Volume 77.2 FL (87-102); Mean Platelet Volume 9.7 FL (9.6-12.0); Monocytes # 0.5 10*3/uL (0.11-0.8); Monocytes % 6.8 % (1.7-12.7); Neutrophils % 38.3 % (38.7-73.9); Platelet Count 321 T/CUMM (130-400); Red Blood Count 4.74 MC/CUMM (3.8-5.5); Red Cell Distribution Width 14.4 % (9.3-17.3); White Blood Count 6.9 T/CUMM (4-12)
[2022-07-03 08:29] LABS: Osmolality,Calculated 271.1 MOS/KG (273-304); Potassium 4.4 MMOL/L (3.5-5.1)
[2022-07-03] MEDS ORDERED: LOSARTAN 25 MG TABLET PO SCH (09:00)
[2022-07-03] MEDS: INSULIN LISPRO 100 UNIT/ML SUBCUT SCH ×2 (09:29→12:22)
[2022-07-03] MEDS: INSULIN NPH/REG 70/30 100 UNIT/ML SUBCUT SCH (09:30)
[2022-07-03] MEDS: FLUCONAZOLE 100 MG TABLET PO SCH (09:30)
[2022-07-03] MEDS: PANTOPRAZOLE 40 MG TABLET PO SCH (09:30)
[2022-07-03] MEDS ORDERED: DEXTROSE 50% 25 GM/50 ML VIAL IV PRN (09:45)
[2022-07-03 10:13] LABS: Eosinophils 2 % (0-10); Lymphocytes 47 % (20-55); Platelet Estimate Adequate; Total Cells Counted 100
[2022-07-03 10:14] LABS: Hypochromia Slight; Microcytosis Slight
[2022-07-03 10:48] VITALS: BP 125/81
== END 2022-07-03 15:21 | disposition home or self-care (01) ==
LOC: N.ED 08:50 → N.EDINP 08:50 → SUATTDRO 16:02 → N.3E 18:04
PROVIDERS: ADMIT Internal Medicine; ATTEND Internal Medicine